=== PATIENT | male | born 1995 | race Two or more races ===

== ENCOUNTER 2016-08-25 06:36 | Emergency (ER) | payer OTHER, SELFPAY ==
[2016-08-25] MEDS ORDERED: NAPR250T2 PO (07:12)
--- NOTE | 2016-08-25 08:17 | REP ---
Clinical: Trauma. Technique: AP, lateral, bilateral oblique views of the right ankle. Findings: Moderate lateral swelling. No acute fracture or dislocation. Ankle mortise intact. Impression: Lateral soft tissue swelling. No acute fracture or dislocation. Signed by Raza Silva MD 08/25/2016 08:08 A
[2016-08-25] MEDS ORDERED: PERCOCET 5MG/325MG TAB PO ONE (08:45)
--- NOTE | 2016-08-25 09:17 | REP ---
RIGHT FOOT, FOUR VIEWS: There is no evidence of an acute fracture, dislocation or intrinsic bone disease. IMPRESSION: No fracture or dislocation. Signed by Kamlesh Lopez MD 08/25/2016 04:06 P
[2016-08-25 09:27] VITALS: BP 122/68
== END 2016-08-25 09:28 | disposition home or self-care (01) ==
LOC: M ED 07:51
DX: S93.401A Sprain of unspecified ligament of right ankle, initial encounter (principal); W10.9XXA Fall (on) (from) unspecified stairs and steps, initial encounter; Y92.019 Unspecified place in single-family (private) house as the place of occurrence of the external cause; Y93.01 Activity, walking, marching and hiking; Y99.8 Other external cause status; Z88.0 Allergy status to penicillin; Z88.1 Allergy status to other antibiotic agents

== ENCOUNTER 2017-09-20 14:05 | Emergency (ER) | payer OTHER | END 2017-09-20 18:05 | disposition home or self-care (01) | LOC: M ED 14:05 | DX: R03.0 Elevated blood-pressure reading, without diagnosis of hypertension (principal); M79.641 Pain in right hand; R22.31 Localized swelling, mass and lump, right upper limb; Z88.0 Allergy status to penicillin; Z88.1 Allergy status to other antibiotic agents; Z87.891 Personal history of nicotine dependence | CPT/HCPCS: 73130 ==